=== PATIENT | female | born 1995 ===

== ENCOUNTER 2016-09-24 11:13 | Emergency (ER) | payer SELFPAY ==
[2016-09-24 11:36] VITALS: TEMP 98
[2016-09-24] MEDS ORDERED: Sodium Chloride 0.9% 1,000 ML IV STA (11:52)
[2016-09-24 12:35] LABS: BASO % 0.2 % (0.0-2.0); EOS # 0.1 K/uL (0.0-0.7); EOS % 0.4 % (0.0-4.0); HEMATOCRIT 36.4 % (34.0-47.0); LYMPH # 1.6 K/uL (1.0-4.3); LYMPH % 13.1 % (20.0-40.0); MEAN CELL VOLUME 84.5 fl (81.0-99.0); MEAN CORPUSCULAR HEMOGLOBIN 28.1 pg (27.0-31.0); MEAN CORPUSCULAR HGB CONC 33.3 g/dL (33.0-37.0); MEAN PLATELET VOLUME 10.5 fl (7.2-11.7); MONO # 1.1 K/uL (0.0-0.8); MONO % 9.1 % (0.0-10.0); NEUT # 9.4 K/uL (1.8-7.0); NEUT % 77.2 % (50.0-75.0); NRBC % 0.1 % (0.0-0.0); RED CELL DISTRIBUTION WIDTH 13.5 % (11.5-14.5); WHITE BLOOD COUNT 12.2 K/uL (4.8-10.8)
[2016-09-24 12:38] LABS: ALB/GLOB RATIO 1.2 (1.0-2.1); ALKALINE PHOSPHATASE 65 U/L (38-126); ALT/SGPT 23 U/L (9-52); AST/SGOT 39 U/L (14-36); BILIRUBIN,TOTAL 0.9 mg/dl (0.2-1.3); BLOOD UREA NITROGEN 14 mg/dl (7-17); CALCIUM 9.9 mg/dL (8.4-10.2); CARBON DIOXIDE 25 mmol/L (22-30); CHLORIDE 102 mmol/L (98-107); GFR AFRICAN-AMERICAN > 60; GLUCOSE,RANDOM 88 mg/dL (65-105); POTASSIUM 3.6 MMOL/L (3.6-5.0); SODIUM 143 mmol/l (132-148); TOTAL PROTEIN 8.4 G/DL (6.3-8.2)
--- NOTE | 2016-09-24 12:45 | CT ---
PROCEDURE: CT HEAD WITHOUT CONTRAST. HISTORY: Frontal GONZALEZ COMPARISON: None available. TECHNIQUE: Axial computed tomography images were obtained through the head/brain without intravenous contrast. Radiation dose: Total exam DLP = 770.67 mGy-cm. FINDINGS: HEMORRHAGE: No intracranial hemorrhage. BRAIN: No mass effect or edema. No atrophy or chronic microvascular ischemic changes. VENTRICLES: Unremarkable. No hydrocephalus. CALVARIUM: Unremarkable. PARANASAL SINUSES: Unremarkable as visualized. No significant inflammatory changes. MASTOID AIR CELLS: Unremarkable as visualized. No inflammatory changes. OTHER FINDINGS: None. IMPRESSION: Normal CT of the Head.
--- NOTE | 2016-09-24 13:03 | ED PDOC ---
HPI: Headache Time Seen by Provider: 09/24/16 11:36 Chief Complaint (Nursing): Headache Chief Complaint (Provider): GONZALEZ History Per: Patient, Family History/Exam Limitations: no limitations Onset/Duration Of Symptoms: Days (2) Current Symptoms Are (Timing): Still Present Severity: Moderate Quality: "Pain" Preceeding Symptoms: None Associated Symptoms: Nausea, Vomiting. denies: Photophobia, Blurred Vision, Extremity Weakness Additional History Per: Family Additional Complaint(s): Pt reports 2 day h/o frontal GONZALEZ, gradual onset, associated with subjective fever , nausea and vomiting. Last took Tylenol yesterday with good relief of pain. Denies blurry vision, numbness, weakness, neck stiffness, photophobia. Reports similar GONZALEZ in past. - Risk Factors SAH Risk Factors: Neg: Sudden Onset Of Pain, Worst Headache Of Life Past Medical History Reviewed: Nursing Documentation, Vital Signs Vital Signs: Last Vital Signs Temp 98 F 09/24/16 11:32 Pulse 107 H 09/24/16 11:32 Resp 20 09/24/16 11:32 BP 110/64 09/24/16 11:32 Pulse Ox 100 09/24/16 11:32 - Medical History PMH: No Chronic Diseases - Surgical History Surgical History: No Surg Hx - Family History Family History: States: No Known Family Hx - Social History Current smoker - smoking cessation education provided: No Alcohol: None - Home Medications Home Medications: Ambulatory Orders Medication Instructions Recorded Naproxen [Naprosyn] 500 mg PO BID PRN #15 tablet 09/24/16 Ondansetron ODT [Zofran ODT] 4 mg PO Q8H PRN #20 odt 09/24/16 - Allergies Allergies/Adverse Reactions: Allergies Allergy/AdvReac Type Severity Reaction Status Date / Time No Known Allergies Allergy Verified 09/24/16 11:32 Review of Systems Constitutional: Positive for: Fever (Subjective). Negative for: Chills Eyes: Negative for: Pain, Vision Change Cardiovascular: Negative for: Chest Pain, Palpitations Respiratory: Negative for: Cough, Shortness of Breath Gastrointestinal: Positive for: Nausea, Vomiting Musculoskeletal: Negative for: Neck Pain Skin: Negative for: Rash, Lesions Neurological: Positive for: Headache, Dizziness. Negative for: Weakness, Numbness, Incoordination, Change in Speech, Confusion, Seizures, Altered Mental Status Physical Exam - Reviewed Nursing Documentation Reviewed: Yes Vital Signs Reviewed: Yes - Physical Exam Appears: Positive for: Well, No Acute Distress Head Exam: Positive for: ATRAUMATIC, NORMAL INSPECTION Skin: Positive for: Normal Color, Warm, Dry Eye Exam: Positive for: Normal appearance, EOMI, PERRL Neck: Positive for: Normal, Painless ROM, Supple. Negative for: Decreased ROM, Pain On Movement Of Neck Cardiovascular/Chest: Positive for: Regular Rate, Rhythm Respiratory: Positive for: Normal Breath Sounds Extremity: Positive for: Normal ROM Neurologic/Psych: Positive for: Alert, rides attendant II-XII, Oriented. Negative for: Motor/Sensory Deficits, Facial Droop - Laboratory Results Result Diagrams: 09/24/16 12:15 09/24/16 12:15 - ECG O2 Sat by Pulse Oximetry: 100 - CT Scan/US CT head Other Rad Studies (CT/US): Radiology Report Reviewed (Normal CT of the Head.) Medical Decision Making Medical Decision Makin yo with GONZALEZ. - labs - Morphine - Zofran - CT head Disposition - Clinical Impression Clinical Impression: Acute headache - Disposition Referrals: [facility] [Outside] Disposition: Routine/Home Disposition Time: 14:21 Condition: IMPROVED Prescriptions: Naproxen [Naprosyn] 500 mg PO BID PRN #15 tablet PRN Reason: Pain, Moderate (4-7) Ondansetron ODT [Zofran ODT] 4 mg PO Q8H PRN #20 odt PRN Reason: Nausea/Vomiting Instructions: Acute Headache (ED) Print Language: FINNISH
[2016-09-24 14:47] VITALS: BP 110/70; PULSE 86; RESP 18
[2016-09-27 13:58] VITALS: O2SAT 100
== END 2016-09-24 12:30 | disposition home or self-care (01) ==
LOC: H.ER 11:13
DX: R51 Headache (principal); R11.10 Vomiting, unspecified
CPT/HCPCS: 70450; 80053; 81025; 85025; 96361; 96374; 96375; 99283; J2270; J2405; J7040

== ENCOUNTER 2017-01-26 21:04 | Emergency (ER) | payer OTHER ==
[2017-01-26 21:19] VITALS: BP 121/61; PULSE 117; RESP 16; TEMP 99.8; O2SAT 100
--- NOTE | 2017-01-26 21:57 | ED PDOC ---
HPI: General Adult Time Seen by Provider: 01/26/17 21:50 Chief Complaint (Nursing): Fever Chief Complaint (Provider): Fever/Dysuria History Per: Patient History/Exam Limitations: no limitations Onset/Duration Of Symptoms: Days (x2) Current Symptoms Are (Timing): Still Present Additional Complaint(s): Nikia Brasher is a 21 year old female that presents to the ED with a chief complaint of fever, chills, and dysuria that she has been experiencing for the past two days. Patient states that she had one episode of vomiting earlier today. Past Medical History Reviewed: Historical Data, Nursing Documentation, Vital Signs Vital Signs: Last Vital Signs Temp 99.8 F H 01/26/17 21:16 Pulse 117 H 01/26/17 21:16 Resp 16 01/26/17 21:16 BP 121/61 01/26/17 21:16 Pulse Ox 100 01/27/17 00:04 - Family History Family History: States: Unknown Family Hx - Home Medications Home Medications: Ambulatory Orders Medication Instructions Recorded Naproxen [Naprosyn] 500 mg PO BID PRN #15 tablet 09/24/16 Ondansetron ODT [Zofran ODT] 4 mg PO Q8H PRN #20 odt 09/24/16 Ciprofloxacin HCl [Cipro] 500 mg PO BID #14 tablet 01/27/17 Ibuprofen [Motrin] 600 mg PO Q8 PRN #15 tab 01/27/17 Ondansetron [Zofran Odt] 4 mg PO Q6 PRN #10 odt 01/27/17 Phenazopyridine HCl [Pyridium] 100 mg PO BID PRN #6 tablet 01/27/17 - Allergies Allergies/Adverse Reactions: Allergies Allergy/AdvReac Type Severity Reaction Status Date / Time No Known Allergies Allergy Verified 09/24/16 11:32 Review of Systems Constitutional: Positive for: Fever, Chills Gastrointestinal: Positive for: Vomiting (x1 episode) Genitourinary Female: Positive for: Dysuria Physical Exam - Reviewed Nursing Documentation Reviewed: Yes Vital Signs Reviewed: Yes - Physical Exam Appears: Positive for: Non-toxic, No Acute Distress Head Exam: Positive for: ATRAUMATIC, NORMOCEPHALIC Skin: Positive for: Normal Color, Warm Cardiovascular/Chest: Positive for: Regular Rate, Rhythm. Negative for: Murmur Respiratory: Positive for: Normal Breath Sounds. Negative for: Wheezing Gastrointestinal/Abdominal: Positive for: Normal Exam, Soft. Negative for: Tenderness Back: Positive for: Normal Inspection. Negative for: L CVA Tenderness, R CVA Tenderness Neurologic/Psych: Positive for: Alert, Oriented. Negative for: Motor/Sensory Deficits - Laboratory Results Result Diagrams: 01/26/17 22:44 01/26/17 22:44 Urine POC: Negative Urine dip results: Positive for: Leukocyte Esterase, Blood, Ketones. Negative for: Nitrate, Glucose, Bilirubin, Protein - ECG O2 Sat by Pulse Oximetry: 100 (RA) Pulse Ox Interpretation: Normal - Progress ED Course And Treament: NS 1 LITER WIDE OPEN ZOFRAN 4 MG IV X 1 DOSE ROCEPHIN 1 GM IV X 1 DOSE PATIENT FEELS IMPROVED. Medical Decision Making Medical Decision Making: Impression: UTI Plan: * Urine Dipstick * Urine * Urine Culture * Urinalysis * Reevaluation Scribe Attestation: Documented by Yarelis Perrin, acting as a scribe for Clary Cardona PA-C. Provider Scribe Attestation: All medical record entries made by the Scribe were at my direction and personally dictated by me. I have reviewed the chart and agree that the record accurately reflects my personal performance of the history, physical exam, medical decision making, and the department course for this patient. I have also personally directed, reviewed, and agree with the discharge instructions and disposition. Disposition - Clinical Impression Clinical Impression: Complicated UTI (urinary tract infection) - Patient ED Disposition Is Patient to be Admitted: No - Disposition Referrals: [facility] [Outside] Disposition: Routine/Home Disposition Time: 00:10 Condition: FAIR Prescriptions: Ciprofloxacin HCl [Cipro] 500 mg PO BID #14 tablet Ibuprofen [Motrin] 600 mg PO Q8 PRN #15 tab PRN Reason: Pain, Moderate (4-7) Ondansetron [Zofran Odt] 4 mg PO Q6 PRN #10 odt PRN Reason: Nausea/Vomiting Phenazopyridine HCl [Pyridium] 100 mg PO BID PRN #6 tablet PRN Reason: Urinary Discomt Instructions: Urinary Tract Infection in Women (DC) Forms: [employer] (Italian), [facility] ED School/Work Excuse Print Language: CROATIAN
[2017-01-26] MEDS ORDERED: cefTRIAXone (Rocephin) 1 gm Inj IVPB ONE (22:23)
[2017-01-26] MEDS ORDERED: Sodium Chloride 0.9% 1,000 ML IV STA (22:23)
[2017-01-26 22:47] LABS: BASO # 0.1 K/uL (0.0-0.2); BASO % 0.4 % (0.0-2.0); EOS % 0.2 % (0.0-4.0); HEMATOCRIT 38.8 % (34.0-47.0); LYMPH # 1.7 K/uL (1.0-4.3); LYMPH % 9.7 % (20.0-40.0); MEAN CELL VOLUME 85.5 fl (81.0-99.0); MEAN CORPUSCULAR HEMOGLOBIN 28.2 pg (27.0-31.0); MONO # 1.1 K/uL (0.0-0.8); MONO % 6.2 % (0.0-10.0); NEUT # 14.6 K/uL (1.8-7.0); NEUT % 83.5 % (50.0-75.0); PLATELET COUNT 190 K/uL (130-400); RED CELL DISTRIBUTION WIDTH 13.6 % (11.5-14.5); WHITE BLOOD COUNT 17.5 K/uL (4.8-10.8)
[2017-01-26] MEDS ORDERED: cefTRIAXone (Rocephin) 1 gm Inj ONE (22:47)
[2017-01-26 22:50] LABS: RBC URINE 67 /hpf (0-3); URINE BILIRUBIN NEGATIVE (NEGATIVE); URINE BLOOD LARGE (NEGATIVE); URINE COLOR YELLOW (YELLOW); URINE GLUCOSE (UA) NEG (Normal); URINE KETONE 20 mg/dL (NEGATIVE); URINE LEUKOCYTE ESTERASE LARGE Leu/uL (Negative); URINE PROTEIN 100 mg/dL (NEGATIVE); URINE UROBILINOGEN 0.2-1.0 mg/dL (0.2-1.0); WBC URINE 300 /hpf (0-5)
[2017-01-26 22:55] LABS: BLOOD UREA NITROGEN 9 mg/dl (7-17); CALCIUM 9.9 mg/dL (8.4-10.2); CARBON DIOXIDE 23 mmol/L (22-30); CHLORIDE 103 mmol/L (98-107); GFR AFRICAN-AMERICAN > 60; GLUCOSE,RANDOM 104 mg/dL (65-105); POTASSIUM 3.5 MMOL/L (3.6-5.0); SODIUM 139 mmol/l (132-148)
[2017-01-26 23:31] LABS: VENOUS BLOOD GAS BASE EXCESS -0.7 mmol/L (0.0-2.0); VENOUS BLOOD GAS PCO2 40 mmHg (40-60); VENOUS BLOOD PH 7.39 (7.32-7.43)
[2017-01-27 00:08] LABS: EOSINOPHIL 1 % (0-7); LARGE PLATELETS PRESENT; NEUTROPHIL 89 % (42-75); TOTAL CELLS COUNTED 100
== END 2017-01-27 00:49 | disposition home or self-care (01) ==
LOC: H.ER 21:04
DX: N39.0 Urinary tract infection, site not specified (principal)